=== PATIENT | male | born 1995 | race Caucasian/White ===

== ENCOUNTER 2017-07-08 20:28 | Emergency (ER) | payer OTHER ==
[2017-07-08 20:39] VITALS: BP 133/67
[2017-07-08] MEDS ORDERED: OFLOXACIN 0.3% SOLN PREPACK OPHT.BTL TAKEHOME ONE (21:00)
--- NOTE | 2017-07-08 21:03 | EDPHY ---
H & P Stated Complaint: bilateral eye redness/drainage since AM Time Seen by Provider: 07/08/17 20:57 HPI/ROS: CHIEF COMPLAINT: Conjunctivitis HISTORY OF PRESENT ILLNESS: Patient is a 22-year-old man who comes to the emergency department complaining of bilateral eye irritation, redness and yellow discharge. It began this morning when he awoke and had trouble opening his eyes. He has not had a fever. He has not had any known exposures. No respiratory symptoms. REVIEW OF SYSTEMS: Constitutional: denies: chills, fever, recent illness, recent injury EENTM: See HPI denies: blurred vision, double vision, nose congestion Respiratory: denies: cough, shortness of breath Cardiac: denies: chest pain, irregular heart rate, lightheadedness, palpitations Gastrointestinal/Abdominal: denies: abdominal pain, diarrhea, nausea, vomiting, blood streaked stools Genitourinary: denies: dysuria, frequency, hematuria, pain Musculoskeletal: denies: joint pain, muscle pain Skin: denies: lesions, rash, jaundice, bruising Neurological: denies: headache, numbness, paresthesia, tingling, dizziness, weakness Hematologic/Lymphatic: denies: blood clots, easy bleeding, easy bruising Immunologic/allergic: denies: HIV/AIDS, transplant EXAM: GENERAL: Well-appearing, well-nourished and in no acute distress. HEAD: Atraumatic, normocephalic. EYES: Pupils equal round and reactive to light, extraocular movements intact, sclera anicteric, conjunctiva are normal. ENT: Bilateral conjunctival injection in yellowish discharge in irritation. No vision changes. TMs normal, nares patent, oropharynx clear without exudates. Moist mucous membranes. NECK: Normal range of motion, supple without lymphadenopathy or JVD. LUNGS: Breath sounds clear to auscultation bilaterally and equal. No wheezes rales or rhonchi. HEART: Regular rate and rhythm without murmurs, rubs or gallops. ABDOMEN: Soft, nontender, normoactive bowel sounds. No guarding, no rebound. No masses appreciated. BACK: No CVA tenderness, no spinal tenderness, step-offs or deformities EXTREMITIES: Normal range of motion, no pitting or edema. No clubbing or cyanosis. NEUROLOGICAL: Cranial nerves II through XII grossly intact. Normal speech, normal gait. 5/5 strength, normal movement in all extremities, normal sensation PSYCH: Normal mood, normal affect. SKIN: Warm, dry, normal turgor, no visible rashes or lesions. Source: Patient Exam Limitations: No limitations - Personal History Current Tetanus/Diphtheria Vaccine: Yes Current Tetanus Diphtheria and Acellular Pertussis (TDAP): Yes - Medical/Surgical History Hx Asthma: No Hx Chronic Respiratory Disease: No Hx Diabetes: No Hx Cardiac Disease: No Hx Renal Disease: No Hx Cirrhosis: No Hx Alcoholism: No Hx HIV/AIDS: No Hx Splenectomy or Spleen Trauma: No Other PMH: denies - Family History Significant Family History: No pertinent family hx - Social History Smoking Status: Never smoked Alcohol Use: Sober Drug Use: None Constitutional: Initial Vital Signs Temperature (C) 36.9 C 07/08/17 20:37 Heart Rate 88 07/08/17 20:37 Respiratory Rate 16 07/08/17 20:37 Blood Pressure 133/67 H 07/08/17 20:37 O2 Sat (%) 98 07/08/17 20:37 O2 Delivery Mode Room Air Allergies/Adverse Reactions: No Known Allergies Allergy (Unverified 07/08/17 20:39) Home Medications: Medication Instructions Recorded NK [No Known Home Meds] 07/08/17 Medical Decision Making ED Course/Re-evaluation: The patient's symptoms are consistent with bacterial conjunctivitis. I will start him on antibiotics. He is not were contacts or glasses. We discussed contact precautions Differential Diagnosis: Partial list of the Differential diagnosis considered include but were not limited to; bacterial conjunctivitis, viral conjunctivitis, allergic conjunctivitis and although unlikely based on the history and physical exam, I also considered foreign body, abrasion, ruptured globe, autoimmune disease. I discussed these differential diagnoses and the plan with the patient as well as the usual and expected course. The patient understands that the diagnosis is provisional and that in medicine we are not always correct and that further workup is often warranted. Usual and customary warnings were given. All of the patient's questions were answered. The patient was instructed to return to the emergency department should the symptoms at all worsen or return, otherwise to followup with the physician as we discussed. - Data Points Medications Given: Discontinued Medications Ofloxacin (Ocuflox 0.3% Opht Drops Prepack) 1 btl TAKEHOME EDNOW ONE Stop: 07/08/17 21:01 Last Admin: 07/08/17 21:11 Dose: 1 btl Departure - Departure Disposition: Home, Routine, Self-Care Clinical Impression: Acute conjunctivitis of both eyes Qualifiers: Acute conjunctivitis type: bacterial Qualified Code(s): H10.33 - Unspecified acute conjunctivitis, bilateral Condition: Fair Instructions: Ofloxacin (Into the eye), Conjunctivitis (ED) Additional Instructions: Use the drops every 4 hr for 5 days. Referrals: NONE *PRIMARY CARE P,. [Primary Care Provider] - As per Instructions Melyssa Reddy MD [Non Staff Provider (MD)] - As per Instructions
== END 2017-07-08 21:20 | disposition home or self-care (01) ==
DX: H10.33 Unspecified acute conjunctivitis, bilateral (principal)

== ENCOUNTER 2018-04-25 02:22 | Emergency (ER) | payer OTHER ==
[2018-04-25] MEDS ORDERED: IBUPROFEN 800 MG TAB PO ONE (02:36)
--- NOTE | 2018-04-25 02:36 | EDPHY ---
H & P Stated Complaint: R ear pain x 3 hours, pain preventing him from sleeping, sore throat Time Seen by Provider: 04/25/18 02:36 HPI/ROS: HPI CHIEF COMPLAINT: Right ear pain. HISTORY OF PRESENT ILLNESS: 23-year-old male, presents emergency room with right ear pain x3 hours and sore throat. Patient states he was in urgent care yesterday put on a antibiotic for his lungs. States his lungs were rattling. He is unsure exactly the antibiotic. Arrives to emergency room 3 hr right ear pain. He also complains of a sore throat. Patient denies any fever. He did not take any Tylenol Motrin for this. Denies fever vomiting. Past Medical History: Denies medical history Past Surgical History: Denies surgical history Social History: [employer] student denies drugs or tobacco. Does drink alcohol occasionally. Family History: Noncontributory ROS REVIEW OF SYSTEMS: 10 Systems were reviewed and negative with the exception of the elements mentioned in the history of present illness. Exam Constitutional triage nursing summary reviewed, vital signs reviewed, awake/ alert. Eyes normal conjunctivae and sclera, EOMI, PERRLA. HENT right ear canal has cerumen impaction present, left ear canal TM visualized and normal, posterior pharynx unremarkable, normal inspection, atraumatic, moist mucus membranes, no epistaxis, neck supple/ no meningismus, no raccoon eyes. Respiratory clear to auscultation bilaterally, normal breath sounds, no respiratory distress, no wheezing. Cardiovascular rate normal, regular rhythm, no murmur, no edema, distal pulses normal. Gastrointestinal soft, non-tender, no rebound, no guarding, normal bowel sounds, no distension, no pulsatile mass. Genitourinary no CVA tenderness. Musculoskeletal no midline vertebral tenderness, full range of motion, no calf swelling, no tenderness of extremities, no meningismus, good pulses, neurovascularly intact. Skin pink, warm, & dry, no rash, skin atraumatic. Neurologic awake, alert and oriented x 3, AAOx3, moves all 4 extremities equally, motor intact, sensory intact, CN II-XII intact, normal cerebellar, normal vision, normal speech. Psychiatric normal mood/affect. Heme/Lymph/Immune no lymphadenopathy. Differential Diagnosis: Includes but is not limited to in a particular order strep pharyngitis, viral syndrome, URI, cerumen impaction, otitis media Medical Decision Making: Plan for this patient will irrigate his ear to get the wax out as he has cerumen impaction this may be causing right ear pain. Check rapid strep. Will give a dose of Motrin for pain control as he did not take anything prior to arrival. Re-evaluation: Negative strep. 0328: Patient's right ear canal was irrigated and large amount of cerumen impaction was removed. After this was able to see the right TM is intact, is erythematous it is hard for me to tell this erythematous from the irrigation and cerumen impaction versus infection. However patient did complain of right ear pain will place him on Augmentin. Do recommend he follows up with ENT. I recommend that he does not stick anything into his ears. Recommend alternating Tylenol Motrin for pain control. Augmentin as prescribed. 1st dose given in the emergency room he is comfortable this plan. Source: Patient - Personal History Current Tetanus/Diphtheria Vaccine: Yes Current Tetanus Diphtheria and Acellular Pertussis (TDAP): Yes - Medical/Surgical History Hx Asthma: No Hx Chronic Respiratory Disease: No Hx Diabetes: No Hx Cardiac Disease: No Hx Renal Disease: No Hx Cirrhosis: No Hx Alcoholism: No Hx HIV/AIDS: No Hx Splenectomy or Spleen Trauma: No Other PMH: R wrist sx - Social History Smoking Status: Never smoked Constitutional: Initial Vital Signs Temperature (C) 36.2 C 04/25/18 02:24 Heart Rate 64 04/25/18 02:24 Respiratory Rate 16 04/25/18 02:24 Blood Pressure 146/96 H 04/25/18 02:24 O2 Sat (%) 97 04/25/18 02:24 O2 Delivery Mode Nasal Cannula Allergies/Adverse Reactions: No Known Allergies Allergy (Unverified 04/25/18 02:23) Home Medications: Medication Instructions Recorded Amoxicillin/Clavulanate Pot 875 mg PO BID #14 tab 04/25/18 [Augmentin 875 MG TAB (*)] Ibuprofen [Motrin (*)] 800 mg PO Q6-8PRN #10 tab 04/25/18 Medical Decision Making - Data Points Laboratory Results: 04/25/18 04/25/18 Unknown 02:40 Group A Strep Screen NEGATIVE (NEGATIVE) Group A Strep DNA Pending Medications Given: Discontinued Medications Ibuprofen (Motrin) 800 mg PO EDNOW ONE Stop: 04/25/18 02:37 Last Admin: 04/25/18 02:44 Dose: 800 mg Departure - Departure Disposition: Home, Routine, Self-Care Clinical Impression: Otitis media Qualifiers: Otitis media type: unspecified Chronicity: acute Qualified Code(s): H66.90 - Otitis media, unspecified, unspecified ear Condition: Good Instructions: Cerumen Impaction (ED), Earache (ED) Additional Instructions: 1. Do not stick Q-tips in your ear 2. Take antibiotic with food not on an empty stomach. 3. Follow up with ENT. 4. Return to the emergency room if worsening symptoms. Referrals: NONE *PRIMARY CARE P,. [Primary Care Provider] - As per Instructions [facility] [Clinic] - As per Instructions Michael Slaughter MD [Medical Doctor] - As per Instructions Prescriptions: Amoxicillin/Clavulanate Pot [Augmentin 875 MG TAB (*)] 875 mg PO BID #14 tab Ibuprofen [Motrin (*)] 800 mg PO Q6-8PRN #10 tab
[2018-04-25] MEDS ORDERED: AMOXICILLIN/CLAVULANATE POT 875/125 MG TAB PO ONE (03:28)
[2018-04-25 03:42] VITALS: BP 140/92
[2018-04-25 19:54] LABS: GROUP A STREP DNA (THROAT) POSITIVE (NEGATIVE)
== END 2018-04-25 04:12 | disposition home or self-care (01) ==
PROC: 3E1B78Z Irrigation of Ear using Irrigating Substance, Via Natural or Artificial Opening (ICD-10-PCS; principal; 2018-04-25)
DX: H66.91 Otitis media, unspecified, right ear (principal); H61.21 Impacted cerumen, right ear